=== PATIENT | female | born 1995 | race Hispanic/Latino ===

== ENCOUNTER 2019-12-02 19:18 | Inpatient (IN) | payer MEDICAID ==
[~2019-12-02] VITALS: Ht 157.5 cm; Wt 83.9 kg
[2019-12-02] MEDS ORDERED: PREN-196 PO (19:34)
[2019-12-02] MEDS ORDERED: VALA500T PO (19:34)
[2019-12-02] MEDS ORDERED: FERR-82 PO (19:34)
[2019-12-02 19:54] LABS: APPEARANCE,URINE Clear (CLEAR); BILIRUBIN,URINE Negative (NEGATIVE); COLOR,URINE Yellow (YELLOW); GLUCOSE, URINE (UA) Negative (NEGATIVE); KETONES,URINE Trace mg/dL (NEGATIVE); LEUKOCYTE ESTERASE ,URINE Moderate (NEGATIVE); NITRATE,URINE Negative (NEGATIVE); OCCULT BLOOD,URINE Moderate (NEGATIVE); PROTEIN,URINE Negative (NEGATIVE)
[2019-12-02 20:19] LABS: BACTERIA,URINE Moderate /HPF (None Seen); MUCUS,URINE Moderate LPF (None Seen); SQUAMOUS EPITHELIAL CELL,UR Few /HPF (0-2)
[2019-12-02] MEDS ORDERED: LACTATED RINGERS 1000ML 1,000 ML IV PRN (20:34)
[2019-12-02 20:45] LABS: HEMATOCRIT 31.6 % (36-48); MEAN CORPUSCULAR HEMOGLOBIN 28.4 pg (27.0-33.0); MEAN CORPUSCULAR HGB CONC 32.3 g/dL (32.0-36.0); RED BLOOD CELL COUNT(AUTO) 3.59 MIL/uL (4.00-5.50); RED CELL DISTRIBUTION WIDTH 15.1 % (11.0-15.5)
[2019-12-02] MEDS ORDERED: NALOXONE HCL 0.4 MG/1 ML ML IV PRN (20:45)
[2019-12-02] MEDS ORDERED: LACTATED RINGERS 500 ML 500 ML IV PRN (20:45)
[2019-12-02] MEDS ORDERED: EPHEDRINE SULFATE 50 MG/ML AMPULE IVP PRN (20:45)
[2019-12-02] MEDS ORDERED: ROPIVACAINE 0.2% 100ML VIAL 100 ML EP SCH (20:45)
[2019-12-02 20:46] LABS: AMPHET/METH SCREEN,URINE NEGATIVE (NEGATIVE); BARBITURATE SCREEN, URINE NEGATIVE (NEGATIVE); BENZODIAZEPINES SCREEN,URINE NEGATIVE (NEGATIVE); CANNABINOID SCREEN,URINE POSITIVE (NEGATIVE); COCAINE SCREEN,URINE NEGATIVE (NEGATIVE); OPIATE SCREEN,URINE NEGATIVE (NEGATIVE); PHENCYCLIDINE SCREEN,URINE NEGATIVE (NEGATIVE)
[2019-12-02 21:43] VITALS: BP 111/57
[2019-12-02 23:36] VITALS: BP 100/65
[2019-12-03] MEDS ORDERED: OXYTOCIN-LR 20 UNITS/1000 ML 1,000 ML IV ONE (04:33)
[2019-12-03] MEDS ORDERED: OXYTOCIN 10 USP UNITS/ML 20 UNIT in LACTATED RINGERS 1000ML 1,000 ML IV SCH (05:00)
[2019-12-03] MEDS ORDERED: MEASLES/MUMPS/RUBELLA VACCINE, LIVE 0.5 ML/VIAL SQ PRN (08:30)
[2019-12-03] MEDS ORDERED: ACETAMINOPHEN 325 MG TAB PO PRN (08:30)
[2019-12-03] MEDS ORDERED: BENZOCAINE/LANOLIN/ALOE VERA 60 ML AEROSOL TP PRN (08:30)
[2019-12-03] MEDS ORDERED: ACETAMINOPHEN-CODEINE 300/30MG TAB PO PRN (08:30)
[2019-12-03] MEDS ORDERED: DIPH,PERTUSS(ACELL),TET VAC/PF 0.5 ML VIAL IM PRN (08:30)
[2019-12-03] MEDS ORDERED: LANOLIN 30GM OINTMENT TP PRN (08:30)
[2019-12-03] MEDS ORDERED: OXYTOCIN-LR 20 UNITS/1000 ML 1,000 ML IV SCH (08:30)
[2019-12-03] MEDS ORDERED: WITCH HAZEL 1 PAD TP PRN (08:30)
--- NOTE | 2019-12-03 08:47 | NUR ---
+UDS at delivery - [facility] Sw spoke to local CPS office. Pt has hx with CPS but no open case. New report to be called in at delivery.
[2019-12-03] MEDS: DOCUSATE SODIUM 100 MG CAP PO SCH ×2 (09:00→21:21)
--- NOTE | 2019-12-03 10:37 | NUR ---
NEW CPS REPORT # [id number] SW contacted by L&D nurse. Baby girl was born. New report called in to Ian xt [phone].
[2019-12-03 11:30] VITALS: BP 124/66
[2019-12-03] MEDS: IBUPROFEN 600 MG TABLET PO PRN ×2 (11:54→21:22)
--- NOTE | 2019-12-03 14:37 | NUR ---
CPS f/u Sw recd call from Kaci Herrera [phone], [place]. Kaci to see pt and baby in am, between 8:30 and 9. CPs wants pt and baby dc held until they see her.
[2019-12-03 16:10] VITALS: BP 114/54
[2019-12-03 20:00] VITALS: BP 113/72
--- NOTE | 2019-12-03 20:00 | NUR ---
PATIENT ASSESSED AND C/O MILD CRAMPING AND REINFORCED PAIN MANAGEMENT. FUNDUS IS FIRM AND LOCHIA IS SMALL. VERBALIZES DOING WELL AND WAS MADE AWARE THAT MOTRIN WILL BE GIVEN PM MEDS. PATIENT HAS 2+ EDEMA TO LOWER EXTREMITIES AND WAS ENCOURAGED TO DRINK FLUIDS AND WALK. EVENTUALLY SHE WILL START DIURISING THE EXCESS FLUIDS.
[2019-12-03 23:38] VITALS: BP 107/68
[2019-12-04 03:54] VITALS: BP 117/66
[2019-12-04] MEDS: IBUPROFEN 600 MG TABLET PO PRN (03:59)
[2019-12-04 05:28] LABS: HEMATOCRIT 29.3 % (36-48); MEAN CORPUSCULAR HEMOGLOBIN 28.8 pg (27.0-33.0); MEAN CORPUSCULAR HGB CONC 32.1 g/dL (32.0-36.0); MEAN CORPUSCULAR VOLUME 89.9 fL (79-99); RED BLOOD CELL COUNT(AUTO) 3.26 MIL/uL (4.00-5.50); RED CELL DISTRIBUTION WIDTH 14.9 % (11.0-15.5)
[2019-12-04 07:16] VITALS: BP 109/64
[2019-12-04 08:11] LABS: HEPATITIS Bs ANTIGEN SCREEN P Negative (Negative)
[2019-12-04] MEDS: DOCUSATE SODIUM 100 MG CAP PO SCH (09:11)
--- NOTE | 2019-12-04 09:17 | NUR ---
CPS f/u CPS casewker Kaci Herrera [phone] her to meet with pt and see baby. Waiting for safety plan with dcp
--- NOTE | 2019-12-04 09:45 | NUR ---
DCP: NASIM moya call from [address] casewker. Baby can be discharged with mom since due to [place] virus restrictions, CPS can not meet with family at hospital, CPS will have to complete safety plan at pt's home. CPS to do home visit and wait for mom and baby at the home. Krista nursery nurse made aware.
[2019-12-04 11:21] VITALS: BP 113/68
--- NOTE | 2019-12-04 13:10 | NUR ---
PATIENT LEFT UNIT WITH BABY IN ARMS. BABY OK TO BE DISCHARGED WITH MOM PER LORY ALVARADO, CALL MANAGER. PERSONAL VEHICLE USED FOR TRANSPORTATION ACCOMPANIED BY FAMILY MEMBER. BABY SECURE IN CARSEAT.
== END 2019-12-04 13:10 | disposition home or self-care (01) | DRG 560 ==
LOC: EDH 19:18 → LDH 19:19 → OBSVTOIN 21:43 → WSH 12-03 11:22
PROVIDERS: ADMIT Obstetrics & Gynecology; ATTEND Obstetrics & Gynecology
PROC: 10E0XZZ Delivery of Products of Conception, External Approach (ICD-10-PCS; principal; 2019-12-03)
PROC: 3E0234Z Introduction of Serum, Toxoid and Vaccine into Muscle, Percutaneous Approach (ICD-10-PCS; 2019-12-03)
PROC: 3E0134Z Introduction of Serum, Toxoid and Vaccine into Subcutaneous Tissue, Percutaneous Approach (ICD-10-PCS; 2019-12-03)
PROC: 3E0R3BZ Introduction of Anesthetic Agent into Spinal Canal, Percutaneous Approach (ICD-10-PCS; 2019-12-03)
PROC: 00HU33Z Insertion of Infusion Device into Spinal Canal, Percutaneous Approach (ICD-10-PCS; 2019-12-03)
DX: O80 Encounter for full-term uncomplicated delivery (principal); Z37.0 Single live birth; Z23 Encounter for immunization; Z3A.39 39 weeks gestation of pregnancy
CPT/HCPCS: 36415; 80305; 81001; 85027; 86592; 86850; 86900; 86901; 87088; 87340; 90715; A4314; A4606; G0378; J2590; J2795; J7120